=== PATIENT | female | born 2000 | race Caucasian/White ===

== ENCOUNTER 2025-05-22 10:52 | Outpatient (CLI) | payer BC, SELFPAY ==
--- NOTE | 2025-06-10 15:59 | WPDHOLTEREM ---
Holter/Event Monitor Holter/Event Monitor Date of procedure: 05/22/25 Holter/Event Procedure: 3-7 Day Holter Monitor Indications: Tachycardia Conclusion: 1. 7 days holter monitor on 05/22/25. 2. Underlying rhythm is sinus rhythm. HR range 39-169 bpm. HR at 39 bpm was on 05/28/25 at 4:18 am. HR at 169 bpm was on 05/22/25 at 4:40 pm. 3. There are occasional premature supraventricular complexes, rare supraventricular couplets, and rare supraventricular triplets. No supraventricular tachycardia. 4. There are rare premature ventricular complexes, rare ventricular couplets, and rare ventricular triplets. No ventricular tachycardia. 5. There is 2nd degree AV block, type I on 05/25 at 10:45 pm. No significant pauses greater than 3 seconds. 6. No symptoms available for correlation.
== END 2025-05-22 10:53 | disposition home or self-care (01) ==
PROVIDERS: PCP Nurse Practitioner Family; Visit Provider Nurse Practitioner Family
DX: I49.8 Other specified cardiac arrhythmias (principal); R00.0 Tachycardia, unspecified
CPT/HCPCS: 93242